=== PATIENT | male | born 1960 | race Caucasian/White ===

== ENCOUNTER 2016-07-28 19:14 | Emergency (ER) | payer BC ==
[~2016-07-28] VITALS: Ht 177.8 cm; Wt 65.8 kg
[~2016-07-28 19:14] MED LIST: ASPIR 8181 M1 PO; NICOTINE PATCH1 EAC2 TD; PERCOCET 10/1 TABLET PO; XARELTO15 MG PO; ZUBSOLV 5.7-1.1 EACH SL
[2016-07-28] MEDS ORDERED: INDOCIN50 MG PO (22:56)
[2016-07-28 23:07] VITALS: BP 112/95
[2016-07-28 23:20] LABS: APPEARANCE CLEAR/STRAW
[2016-07-28 23:30] LABS: MONO RAW COUNT 77; MONONUCLEAR WBC'S 77 %; POLY RAW COUNT 23; POLYNUCLEAR WBC'S 23 % (0-25); SYNOVIAL FLUID EOSINOPHILS 0 % (0-25)
[2016-07-28 23:31] LABS: RED CELL COUNT 288 /MM^3 (0-1); WHITE CELL COUNT 1000 /MM^3 (0-200.0)
[2016-07-29 16:16] LABS: CRYSTALS NO CRYSTALS SEEN
== END 2016-07-28 23:08 | disposition home or self-care (01) ==
LOC: EME 19:14
PROVIDERS: Physician Assistant
PROC: 0S9D3ZZ Drainage of Left Knee Joint, Percutaneous Approach (ICD-10-PCS; principal; 2016-07-28)
DX: M25.462 Effusion, left knee (principal); M71.22 Synovial cyst of popliteal space [Baker], left knee; Z86.711 Personal history of pulmonary embolism; F17.200 Nicotine dependence, unspecified, uncomplicated
CPT/HCPCS: 73564; 87205; 89051; 93971; 99281; 99284; J1885

== ENCOUNTER 2016-08-30 11:51 | Emergency (ER) | payer BC ==
[~2016-08-30] VITALS: Ht 177.8 cm; Wt 65.1 kg
[~2016-08-30 11:51] MED LIST changes: +INDOCIN50 MG PO
[2016-08-30] MEDS ORDERED: ULTRAM50 MG PO (13:35)
[2016-08-30 13:44] VITALS: BP 96/73
== END 2016-08-30 13:53 | disposition home or self-care (01) ==
LOC: EME 11:51
DX: M25.462 Effusion, left knee (principal); M71.22 Synovial cyst of popliteal space [Baker], left knee; F17.200 Nicotine dependence, unspecified, uncomplicated
CPT/HCPCS: 99281; 99283